=== PATIENT | male | born 1955 | race Asian ===

== ENCOUNTER → 2017-05-17 | Outpatient (CLI) | payer OTHER ==
[2017-05-17 07:48] LABS: UA SPECIFIC GRAVITY 1.015 (1.005-1.035); microscopic required? YES; urine erythrocyte NEGATIVE (NEGATIVE)
[2017-05-17 07:54] LABS: BASOPHIL % 0.4 % (0-2); PLATELET COUNT 261 x10^3mcL (130-400); RED CELL DISTRIBUTION WIDTH 13.3 % (11.5-14.5)
[2017-05-17 08:14] LABS: ALBUMIN 3.4 g/dL (3.4-5.0); ALKALINE PHOSPHATASE 68 U/L (46-116); ALT/SGPT 48 U/L (16-63); AST/SGOT 31 U/L (15-37); BILIRUBIN TOTAL 0.71 mg/dL (0.20-1.00); CALCIUM 8.7 mg/dL (8.5-10.1); CARBON DIOXIDE 27.6 mmol/L (21-32); CHLORIDE SERUM 104 mmol/L (98-107); CHOLESTEROL 173 mg/dL (<200); CHOLESTEROL/HDL RATIO 4.4; CREATININE SERUM 1.2 mg/dL (0.7-1.3); GFR1 > 60 mL/min; GLUCOSE SERUM 157 mg/dL (74-106); HDL CHOLESTEROL 39 mg/dL (40-60); POTASSIUM SERUM 4.2 mmol/L (3.5-5.1); SODIUM SERUM 142 mmol/L (136-145); TOTAL PROTEIN, SERUM 7.7 g/dL (6.4-8.2); TRIGLYCERIDES 131 mg/dL (<150); URIC ACID 8.4 mg/dL (3.5-7.2)
[2017-05-18 13:42] LABS: microalbumin:creatinine ratio 107.6 (0.0-30.0)
== END | disposition home or self-care (01) ==
LOC: LB 06:56
PROVIDERS: Family Medicine Geriatric Medicine
DX: I10 Essential (primary) hypertension (principal); E11.8 Type 2 diabetes mellitus with unspecified complications; E78.5 Hyperlipidemia, unspecified; M10.9 Gout, unspecified; R06.02 Shortness of breath; Z12.11 Encounter for screening for malignant neoplasm of colon; Z12.5 Encounter for screening for malignant neoplasm of prostate; Z13.29 Encounter for screening for other suspected endocrine disorder; Z13.0 Encounter for screening for diseases of the blood and blood-forming organs and certain disorders involving the immune mechanism
CPT/HCPCS: 84153

== ENCOUNTER → 2018-03-21 | Outpatient (CLI) | payer OTHER ==
[2018-03-21 08:19] LABS: ALBUMIN 3.7 g/dL (3.4-5.0); BILIRUBIN TOTAL 0.6 mg/dL (0.20-1.00); CARBON DIOXIDE 27.9 mmol/L (21-32); CHOLESTEROL/HDL RATIO 3.9; CREATININE SERUM 1.9 mg/dL (0.7-1.3); POTASSIUM SERUM 3.1 mmol/L (3.5-5.1); URIC ACID 11.1 mg/dL (3.5-7.2)
== END | disposition home or self-care (01) ==
LOC: LB 07:09
DX: I10 Essential (primary) hypertension (principal); E11.8 Type 2 diabetes mellitus with unspecified complications; E78.5 Hyperlipidemia, unspecified; M79.671 Pain in right foot

== ENCOUNTER → 2018-04-23 | Outpatient (CLI) | payer OTHER ==
[2018-04-23 07:39] LABS: BASOPHIL % 0.3 % (0-2); PLATELET COUNT 258 x10^3mcL (130-400); RED CELL DISTRIBUTION WIDTH 13.2 % (11.5-14.5)
[2018-04-23 08:06] LABS: ALBUMIN 3.6 g/dL (3.4-5.0); BILIRUBIN DIRECT 0.13 mg/dL (0.0-0.2); BILIRUBIN TOTAL 0.44 mg/dL (0.20-1.00); CALCIUM 9.2 mg/dL (8.5-10.1); CARBON DIOXIDE 31.5 mmol/L (21-32); CREATININE SERUM 1.3 mg/dL (0.7-1.3); TOTAL PROTEIN, SERUM 7.8 g/dL (6.4-8.2)
== END | disposition home or self-care (01) ==
LOC: LB 07:06
PROVIDERS: Podiatrist Foot & Ankle Surgery
DX: L03.032 Cellulitis of left toe (principal); L92.9 Granulomatous disorder of the skin and subcutaneous tissue, unspecified

== ENCOUNTER → 2019-05-12 | Outpatient (REF) | END | disposition home or self-care (01) | LOC: RD 07:19 | DX: R76.11 Nonspecific reaction to tuberculin skin test without active tuberculosis (principal) ==

== ENCOUNTER → 2020-04-27 | Outpatient (CLI) | payer OTHER ==
[2020-04-27 07:59] LABS: microscopic required? YES; urine erythrocyte NEGATIVE (NEGATIVE)
[2020-04-27 08:22] LABS: PLATELET COUNT 261 x10^3mcL (152-348); RED CELL DISTRIBUTION WIDTH 13.4 % (12.1-16.2)
[2020-04-27 08:28] LABS: BASOPHIL % 3.5 % (0.2-1.5)
[2020-04-27 08:37] LABS: CALCIUM 9.3 mg/dL (8.5-10.1); CARBON DIOXIDE 28.8 mmol/L (21-32); CREATININE SERUM 1.4 mg/dL (0.7-1.3); POTASSIUM SERUM 3.9 mmol/L (3.5-5.1)
[2020-04-27 08:49] LABS: ALBUMIN 3.6 g/dL (3.4-5.0); BILIRUBIN TOTAL 0.72 mg/dL (0.20-1.00); FREE T4 1.36 ng/dL (0.76-1.46); TOTAL PROTEIN, SERUM 7.9 g/dL (6.4-8.2); URIC ACID 9.5 mg/dL (3.5-7.2)
== END | disposition home or self-care (01) ==
LOC: LB 07:26
DX: I10 Essential (primary) hypertension (principal); N40.0 Benign prostatic hyperplasia without lower urinary tract symptoms; E11.8 Type 2 diabetes mellitus with unspecified complications; R07.9 Chest pain, unspecified; M10.9 Gout, unspecified; E78.5 Hyperlipidemia, unspecified; Z13.29 Encounter for screening for other suspected endocrine disorder; Z13.21 Encounter for screening for nutritional disorder; Z12.5 Encounter for screening for malignant neoplasm of prostate; Z13.0 Encounter for screening for diseases of the blood and blood-forming organs and certain disorders involving the immune mechanism
CPT/HCPCS: 82652; 84153; 84439